=== PATIENT | female | born 1955 | race Caucasian/White ===

== ENCOUNTER 2021-02-16 14:19 | Emergency (ER) | payer OTHER ==
--- OUTSIDE RECORDS SUMMARY | 2021-02-16 14:22 | XMS REPORT | Continuity of Care Document ---
:1955 Author Organization [facility] t Address [address] [place] [address] Care Team Providers Name Role Phone Rita MCCALLUM Primary Care Physician Eva De La Garza MD Attending Clinician Eddy Dempsey DO Attending Clinician Carroll QUEZADA Attending Clinician Unavailable Joel RAINEY Attending Clinician Unavailable Vinny Osman MD Attending Clinician Lisa FALK Attending Clinician MD Eva DE LA GARZA Attending Clinician Unavailable Casey Dick NP Attending Clinician Delroy QUEZADA Attending Clinician Unavailable Danelle Meade MD Attending Clinician RAIZA Attending Clinician Unavailable María MIRANDA S Attending Clinician TAMIE Admitting Clinician Unavailable JAI BANKS Admitting Clinician Unavailable RAIZA Admitting Clinician Unavailable Payers Payer Name Policy Type Policy Effective Date Expiration Date Sour ce Number HUMANA [id number] 2019 [place] MEDICAREHUMAN 00:00:00 Scientologist MEDICARE PPO/PFFS/ERS [id number] 2019 -PresentPPO Problems Condition Condition Condition Status Onset Resolution Last Treating Co mments Source Name Details Category Date Date Treatment Clinician Date Primary Primary Disease Active Overview: [place] osteoarthr osteoarthr 09-03 Formattin Methodi itis of itis of 00:00: g of this st right knee right knee 00 note might be different from the original. Added automatic ally from request for surgery [id number] Arthritis Arthritis Problem Active 2018-08 [place] of right of Right 0-15 da knee Knee 00:00: [facility] caused by Caused by 00 al bacteria Bacteria Health Outreac h Program Pyogenic Pyogenic Disease Active 2018-08 [place] arthritis arthritis 0-12 Meth kait of right of right 00:00: st knee joint knee joint 00 Hyperlipid Hyperlipid Problem Active M [place] emia emia 5-13 da 00:00: [facility] 00 al [facility] Obesity Obesity Problem Active [place] [facility] Hypertensi Hypertensi Problem Active [facility] [place] ve ve da disorder Disorder [facility] Asthma Asthma Problem Active [place] [facility] Pain in Pain in Problem Active [place] right knee Right Knee da [facility] Allergies, Adverse Reactions, Alerts Allergy Allergy Status Severity Reaction(s) Onset Inactive Treating Comm ents Source Name Type Date Date Clinician Hydrocod Propensi Active Itching, GI 2018-08 Constipa t [place] one-Acet ty to Intolerance 0-12 ion Pt Met hodi aminophe adverse 00:00: states st n reaction 00 she can s to take it drug but she doesn't like the side effects in her stomach WILBER Allergy Active Mild Cough [place] INHIBITO to da RS substanc [facility] Family History Family Member Diagnosis Comments Start Date Stop Date Source Natural father No Known Problems Nazanin stojailene Scientologist Natural mother No Known Problems Nazanin justa Scientologist Social History Social Habit Start Date Stop Date Quantity Comments Source History SDOH [facility] Meth odist Alcohol Std Drinks History SDOH [place] Meth odist Alcohol Binge Tobacco use and 2020-12-30 2020-12-30 Never used Phill Casillas ethodist exposure 00:00:00 00:00:00 Alcohol intake 2020-12-30 2020-12-30 Current drinker [place] Scientologist 00:00:00 00:00:00 of alcohol (finding) History SDOH 2020-10-07 2020-10-07 1 Phill Meth odist Alcohol Frequency 00:00:00 00:00:00 Alcohol Comment 2020-09-25 2020-09-25 Very seldom Phill Scientologist 00:00:00 00:00:00 Sex [birth year] Phill singh 00:00:00 00:00:00 Smoking Status Start Date Stop Date Source Never smoker Phill Kayeis ivania Medications Ordered Filled Start Stop Current Ordering Indication Dosage Frequency Signature Comments Components Source Medication Medication Date Date Medication? Clinician (SIG) Name Name HYDROcodone 2020- No acute pain acute [place] -acetaminop 11-04 pain. 1-2 Me thodi hen (NORCO) 00:00: 23:[address] 7.5-325 mg 00 :00 mouth per tablet every 4-6 hours as needed for post op pain HYDROcodone 2020- No acute pain acute [place] -acetaminop 10-21 pain. Take Vinny ethodi hen (NORCO) 00:00: 23:[address] 10-325 mg 00 :00 6-8 hours per tablet as needed for post op pain. aspirin 2020- No Presence of 81mg Q.5D Take 1 [place] (ECOTRIN) 09-26 right tablet (81 Me thodi 81 MG 00:00: 23:59 artificial mg total) st enteric 00 :00 knee joint by mouth 2 coated (two) tablet times a day for 42 days. docusate 2020- No Presence of 100mg Q.5D Take 1 [place] sodium 09-26 right capsule Methodi (Colace) 00:00: 00:00 artificial ([address] 100 MG 00 :00 knee joint total) by capsule mouth 2 (two) times a day. gabapentin 2020- No Presence of 300mg QD Take 1 [place] (NEURONTIN) 09-26 right capsule Met hodi 300 mg 00:00: 23:59 artificial (300 mg s t capsule 00 :00 knee joint total) by mouth nightly for 30 days. cholecalcif Yes 2000U QD Take 2,000 [place] kel, 1-27 Units by Methodi vitamin D3, 14:54: mouth st (VITAMIN 37 daily. D3) 2,000 unit capsule capsule alpha Yes 1{capsu QD Take 1 [place] tocopherol 1-27 le} capsule by Met olgai (VITAMIN E) 14:54: mouth st 400 unit 37 daily. capsule capsule losartan Yes 100mg QD Take 100 [place] (COZAAR) 1-27 mg by Methodi 100 MG 14:54: mouth st tablet 37 daily. celecoxib Yes 200mg QD Take 200 Nazanin ston (CeleBREX) 1-27 mg by Methodi 200 MG 14:54: mouth st capsule 37 daily. hydroCHLORO Yes 12.5mg QD Take 12.5 [place] thiazide 1-27 mg by Methodi (HYDRODIURI 14:54: mouth st L) 12.5 MG 37 daily. tablet b complex Yes 1{capsu QD Take 1 Nazanin ston vitamins 1-27 le} capsule by Metho di capsule 14:54: mouth st 37 daily. coenzyme Yes 100mg QD Take 100 [place] Q10 (Co 1-27 mg by Methodi Q-10) 100 14:54: mouth st mg capsule 37 daily. glucosamine Yes 2{tbl} Take 2 [place] /condroitin 1-27 tablets by thkait /[id number] 14:54: mouth. st (COSAMIN 37 ASU ORAL) montelukast 2020- No 10mg QD Take 10 mg Phill (SINGULAIR) 09-20 by mouth Met hodi 10 mg 14:51: 00:[address] tablet 56 :00 meloxicam 2020- No 15mg QD Take 15 mg [place] (MOBIC) 15 09-20 by mouth Meth kait mg tablet 14:51: 00:[address] 54 :00 atorvastati 2020- No 20mg QD Take 20 mg Phill n (LIPITOR) 09-20 by mouth Met hodi 20 MG 14:51: 00:[address] tablet 43 :00 Default OP ins albuterol 2020- No 2{puff} Q6H Inhale 2 [place] (PROAIR 09-20 puffs Methodi HFA) 90 14:51: 00:[address] mcg/actuati 39 :00 (six) on inhaler hours as needed for wheezing. hydroCHLORO 2020- No 25mg QD Take 25 mg [place] thiazide 09-20 by mouth Method i (HYDRODIURI 14:50: 00:[address] L) 25 MG 52 :00 tablet nut.tx.comp 2020- No Pre-operati 1{bottl Q.[id number] Take 1 [place] . immune 09-20 ve e} [id number] Bottle by Methodi systm,reg 00:00: 23:59 examination 3D mouth 3 st (Impact 00 :00 (three) Advanced times a Recovery) day for 5 0.1 days. gram-1.12 Dispense kcal/mL at [facility] liquid HYDROcodone 2020- No acute pain acute [place] -acetaminop 09-20 pain. 1 Meth kait hen ([place]) 00:00: 00:[address] 10-325 mg 00 :00 mouth per tablet every 6-8 hours as needed for post op pain chlorhexidi 2020- No Pre-operati Give at [place] ne 1-05 03-08 ve PAT Methodi (Hibiclens) 00:00: 00:[address] 4 % 00 :00 external liquid metoprolol metoprolol No 1 BID metoprolol [place] tartrate 25 tartrate 25 tartrate da mg tablet mg tablet 25 mg Epis copra sampler Take 1 Take 1 tablet al tablet tablet Take 1 Health twice a day twice a day tablet Outreac by oral by oral twice a h route for route for day by Pro gram 30 days. 30 days. oral route for 30 days. montelukast montelukast No montelukas [place] 10 mg 10 mg t 10 mg da tablet Take tablet Take tablet [facility] 1 tablet(s) 1 tablet(s) Take 1 al every day every day tablet(s) Health by oral by oral every day Outr eac route in route in by oral h the morning the morning route in Program for 30 for 30 the days. days. morning for 30 days. Symbicort Symbicort No Symbicort [place] 160 mcg-4.5 160 mcg-4.5 160 d a mcg/actuati mcg/actuati mcg-4.5 [facility] on HFA on HFA mcg/actuat al aerosol aerosol ion HFA Health inhaler 2 inhaler 2 aerosol Ou treac PUFFS BY PUFFS BY inhaler 2 h INHALATION INHALATION PUFFS BY Program ROUTE 2 ROUTE 2 INHALATION TIMES PER TIMES PER ROUTE 2 DAY DAY TIMES PER DAY Ventolin Ventolin No Ventolin [place] HFA 90 HFA 90 HFA 90 da mcg/actuati mcg/actuati mcg/actuat [facility] on aerosol on aerosol ion al inhaler inhaler aerosol Health Inhale 2 Inhale 2 inhaler Outr eac puffs every puffs every Inhale 2 h 4 hours by 4 hours by puffs Pr ogram inhalation inhalation every 4 route as route as hours by needed for needed for inhalation 30 days. 30 days. route as needed for 30 days. Vitamin D3 Vitamin D3 No 1 Q1D Vitamin D3 [place] 50 mcg 50 mcg 50 mcg da (2,000 (2,000 (2,000 [facility] unit) unit) unit) al tablet Take tablet Take tablet Health 1 tablet 1 tablet Take 1 Outre ac every day every day tablet h by oral by oral every day Prog vanesa route. route. by oral route. vitamin E vitamin E No 1{capsu vitamin E [place] 400 unit 400 unit le} 400 unit da capsule 1 capsule 1 capsule 1 [facility] {capsule} {capsule} {capsule} al by oral by oral by oral Health route. route. route. Outreac h Program Aspir-81 Aspir-81 No Aspir-81 [place] One tab One tab One tab da daily daily daily [facility] atorvastati atorvastati No atorvastat [place] n 20 mg n 20 mg in 20 mg da tablet Take tablet Take tablet [facility] 1 tab by 1 tab by Take 1 tab a l mouth once mouth once by mouth Health a day a day once a day Outreac h Program cholecalcif cholecalcif No 2000U cholecalci [place] kel kel ferol da (vitamin (vitamin (vitamin Epi scop D3) 50 mcg D3) 50 mcg D3) 50 mcg al (2,000 (2,000 (2,000 Health unit) unit) unit) Outreac capsule capsule capsule h 2000 units 2000 units 2000 units Program by oral by oral by oral route. route. route. hydrochloro hydrochloro No hydrochlor [place] thiazide 25 thiazide 25 othiazide da mg tablet 1 mg tablet 1 25 mg [facility] po qd po qd tablet 1 al po qd Health Outreac h Program losartan 50 losartan 50 No 1 Q1D losartan [place] mg tablet mg tablet 50 mg da Take 1 Take 1 tablet [facility] tablet tablet Take 1 al every day every day tablet Hea lth by oral by oral every day Outr eac route. route. by oral h route. Program Macrobid Macrobid No 1capsul BID Macrobid [place] 100 mg 100 mg e(s) 100 mg da capsule capsule capsule [facility] p Take 1 Take 1 Take 1 al capsule capsule capsule Health twice a day twice a day twice a Outreac by oral by oral day by h route for 7 route for 7 oral route Program days. days. for 7 Complete Complete days. entire entire Complete course of course of entire antibiotics antibiotics course of antibiotic s meloxicam meloxicam No meloxicam [place] 15 mg 15 mg 15 mg da tablet 1 po tablet 1 po tablet 1 [facility] qd qd po qd al Health Outreac [facility] Program Immunizations Ordered Immunization Filled Immunization Date Status Commen ts Source Name Name pneumococcal pneumococcal 2019-01-09 Completed [place] polysaccharide PPV23 polysaccharide PPV23 12:20:23 [facility] influenza, influenza, 2018-03-30 Completed [place] injectable, injectable, 00:00:00 Muslim quadrivalent quadrivalent Health Out reach Program pneumococcal pneumococcal 2017-08-18 Completed [place] conjugate PCV 13 conjugate PCV 13 00:00:00 Ep [facility]al [facility]re[facility] Tdap Tdap 2014-08-30 Completed [place] 00:00:00 [facility] Vital Signs Vital Name Observation Time Observation Value Comments Source BP Diastolic 2019-09-07 00:00:00 74 mm[Hg] [place] [facility] Height 2019-09-07 00:00:00 65 [in_i] [place] [facility] BMI (Body Mass 2019-09-07 00:00:00 38.8 kg/m2 [place] link assembler Index) [facility] BP Systolic 2019-09-07 00:00:00 110 mm[Hg] [place] [facility] Body Weight 2019-09-07 00:00:00 233 [lb_av] [place] [facility] BP Diastolic 2019-08-09 00:00:00 80 mm[Hg] [place] [facility] Height 2019-08-09 00:00:00 65 [in_i] [place] [facility] BMI (Body Mass 2019-08-09 00:00:00 38.8 kg/m2 [place] link assembler Index) [facility] BP Systolic 2019-08-09 00:00:00 110 mm[Hg] [place] [facility] Body Weight 2019-08-09 00:00:00 233 [lb_av] [place] [facility] BP Diastolic 2019-07-12 00:00:00 88 mm[Hg] [place] [facility] Height 2019-07-12 00:00:00 65 [in_i] [place] [facility] BMI (Body Mass 2019-07-12 00:00:00 38.2 kg/m2 [place] link assembler Index) [facility] BP Systolic 2019-07-12 00:00:00 138 mm[Hg] [place] [facility] Body Weight 2019-07-12 00:00:00 229.6 [lb_av] [place] [facility] BP Diastolic 2019-06-21 00:00:00 90 mm[Hg] [place] [facility] Height 2019-06-21 00:00:00 65 [in_i] [place] [facility] BP Systolic 2019-06-21 00:00:00 108 mm[Hg] [place] [facility] Body height 2020-12-30 09:54:00 165.1 cm [facility] Body weight 2020-12-30 09:54:00 108.863 kg Phill Dawkins BMI 2020-12-30 09:54:00 39.94 kg/m2 Phill Dawkins Systolic blood 2020-09-25 13:50:00 126 mm[Hg] Sarmad n Scientologist pressure Diastolic blood 2020-09-25 13:50:00 76 mm[Hg] [place] on Scientologist pressure Heart rate 2020-09-25 13:50:00 82 /min Phill Dawkins Respiratory rate 2020-09-25 13:50:00 19 /min Keke Dawkins Oxygen saturation in 2020-09-25 13:50:00 95 /min Phill Dawkins Arterial blood by Pulse oximetry Body temperature 2020-09-25 12:34:00 36.72 Allegra Keke Dawkins Procedures Procedure Date / Time Performing Clinician Source Performed XR KNEE 3 VW RIGHT 2020-10-07 13:05:53 Joanna De La Garza XR KNEE 1 OR 2 VW RIGHT 2020-09-25 12:11:40 Joanna De La Garza SURGICAL PATHOLOGY 2020-09-25 12:09:00 Joanna De La Garza REQUEST ARTHROPLASTY, KNEE, TOTAL 2020-09-25 09:32:00 Joanna De La Garza VT AN PERIPHERAL BLOCK 2020-09-25 08:25:52 Jabari Osman on Scientologist PROCEDURE FOR PAIN VT AN PERIPHERAL BLOCK 2020-09-25 08:25:35 Jabari Osman on Scientologist PROCEDURE FOR PAIN ANESTHESIA SPINAL BLOCK 2020-09-25 08:25:03 Jabari Osman POC GLUCOSE 2020-09-25 07:22:00 Joanna De La Garza Met jose raul ABO AND RH CONFIRMATION 2020-09-25 07:20:00 Joanna De La Garza COVID-19 QUALITATIVE PCR 2020-09-20 15:21:00 Marsha Banks HC COMPLETE BLD COUNT 2020-09-20 15:21:00 Joanna De La Garza W/AUTO DIFF HEMOGLOBIN A1C 2020-09-20 15:21:00 Joanna De La Garza Met jose raul PROTHROMBIN TIME WITH INR 2020-09-20 15:21:00 Joanna De La Garza PARTIAL THROMBOPLASTIN 2020-09-20 15:21:00 Joanna De La Garza TIME (PTT) COMPREHENSIVE METABOLIC 2020-09-20 15:21:00 Joanna De La Garza PANEL TYPE AND SCREEN 2020-09-20 15:21:00 Marsha Banks Phill Met jose raul ESTIMATED GFR 2020-09-20 15:21:00 Joanna De La Garza Met jose raul MRI SIGNATURE KNEE RIGHT 2020-08-22 18:06:35 Joanna De La Garza XR KNEE 1 OR 2 VW RIGHT 2020-08-02 10:49:54 Raquel Meade XR KNEE AP STANDING 2020-08-02 10:47:12 Raquel Meade BILATERAL CHEST X-RAY 2019-09-07 00:00:00 [place] [facility] ELECTROCARDIOGRAM, 2019-09-07 00:00:00 [place] [facility] COMPLETE [facility] Outreach Program Ekg for Initial Prevent 2016-11-10 00:00:00 Silva alessia [facility] Exam [facility] Outreach Program Total Hysterectomy [place] Epi scopal Health Outreach Program Plan of Care Planned Activity Planned Date Details Comments Source Future Scheduled 2024-01-10 65+ PNEUMOCOCCAL Phill Dawkins Test 00:00:00 VACCINE (2 of 2) [code = 65+ PNEUMOCOCCAL VACCINE (2 of 2)] Future Scheduled 2021-03-30 INFLUENZA VACCINE Sarmad Dawkins Test 00:00:00 [code = INFLUENZA VACCINE] Diagnostic Test 2019-09-07 CBC w/ auto diff [place] Pending 00:00:00 [code = CBC w/ auto [facility] diff] Outreach Progra [facility] Diagnostic Test 2019-09-07 CMP, serum or plasma Silva alessia Pending 00:00:00 [code = CMP, serum or [facility] plasma] Outreach Progra m Diagnostic Test 2019-09-07 lipid panel, serum [place] link assembler Pending 00:00:00 [code = lipid panel, [facility] serum] Outreach Progra m Diagnostic Test 2019-09-07 TSH + free T4, serum Silva alessia Pending 00:00:00 [code = TSH + free [facility] T4, serum] Outreach Progra m Diagnostic Test 2019-09-07 HbA1c (hemoglobin [place] Pending 00:00:00 A1c), blood [code = [facility] HbA1c (hemoglobin Outreach P rogram A1c), blood] Diagnostic Test 2019-09-07 urinalysis, complete Silva alessia Pending 00:00:00 [code = urinalysis, [facility] complete] Outreach Progra [facility] Future Scheduled 2005 BREAST CANCER [facility] thodist Test 00:00:00 SCREENING [code = BREAST CANCER SCREENING] Future Scheduled 2005 COLONOSCOPY SCREENING [place] Scientologist Test 00:00:00 [code = COLONOSCOPY SCREENING] Future Scheduled 2005 SHINGLES VACCINES [place] Scientologist Test 00:00:00 (#1) [code = SHINGLES VACCINES (#1)] Future Scheduled 1973 Hepatitis C screening [place] Scientologist Test 00:00:00 (procedure) [code = 455151048] Future Scheduled 1967 COVID-19 VACCINE (1) Nazanin ston Scientologist Test 00:00:00 [code = COVID-19 VACCINE (1)] Encounters Start End Encounter Admission Attending Care Care Encounter Source Date/Time Date/Time Type Type Clinicians Facility Department ID 2020-12-30 2020-12-[address] [facility] [id number] [place] 00:00:00 00:00:00 JOANNA 636 Method i 2020-11-04 2020-11-04 Patient Ke [facility] [id number] 00:00:00 00:00:00 Outreach [facility] [id number] [facility] [id number] LARRY [id number] 2020-11-04 2020-11-[address] [facility] [id number] 8[address] [place] 00:00:00 00:00:00 JOANNA [address] 2020-10-07 2020-10-[address] [facility] [id number] 8[address] [place] 00:00:00 00:00:00 JOANNA [address] 2020-10-07 2020-10-[address] [facility] [id number] 340 [place] 00:00:00 00:00:00 JOANNA [address] 2020-09-25 2020-09-25 Outpatient TAMIE, [facility] [id number] 340 [place] 00:00:00 00:00:00 JOANNA [address] 2020-09-20 2020-09-20 Outpatient TAMIE, [facility] [id number] [place] 00:00:00 00:00:00 JOANNA [address] 2020-09-20 2020-09-20 Outpatient [facility] [id number] 340 [place] 00:00:00 00:00:[address] 2020-08-22 2020-08-22 Outpatient TAMIE, [facility] [id number] 9[address] [place] 00:00:00 00:00:00 JOANNA [address] 2020-08-08 2020-08-08 Outpatient TAMIE, [facility] [id number] [address] [place] 00:00:00 00:00:00 JOANNA [address] 2020-08-02 2020-08-02 Outpatient RAQUEL MEADE [facility] [id number] [place] 00:00:00 00:00:[address] 2020-08-02 2020-08-02 Outpatient RAQUEL MEADE [facility] [id number] [place] 00:00:00 00:00:[address] 2020-08-02 2020-08-02 Outpatient RAQUEL MEADE [facility] [id number] [place] 00:00:00 00:00:[address] 2019-09-07 2019-09-07 Maribel [place] - [id number] [place] 00:00:00 00:00:00 Chu Gamboa NEGOTIATIONS DIRECTOR: [address] Muslim [facility] [address], [address] [place] [id number] Nallely jha , Ph. 2019-08-09 2019-08-09 Maribel [place] - [id number] [place] 00:00:00 00:00:00 Chu Gamboa NEGOTIATIONS DIRECTOR: [address] [facility] [address], [address] [place] [address] Nallely jha , Ph. 2019-07-12 2019-07-12 Maribel [place] - [id number] 3 [place] 00:00:00 00:00:00 Chu Gamboa da NEGOTIATIONS DIRECTOR: [address] Muslim [facility] [address], [place] [address], [facility] [address] Progr am , Ph. 2019-06-21 2019-06-21 Maribel [place] - [id number] 3 [place] 00:00:00 00:00:00 Chu Gamboa da NEGOTIATIONS DIRECTOR: [address] [facility] [address], [place] [address], [facility] [address] Progr am , Ph. 2019-06-09 2019-06-17 [facility] [id number] [place] 00:00:00 00:00:00 HAKEEM [address] 2019-04-28 2019-04-28 Office HOMERO Daniel [id number] 09:10:05 10:42:14 Visit [facility] [id number] Surgical [id number] Specialti [id number] [place] Results Test Description Test Time Test Comments Results Result Comments Source Surgical pathology request 2020-10-02 16:08:48 Test Item Value Reference Range Interpretation Comme nts Case number (test code = [id number]) [id number] Surgical pathology report (test code = See link below for PDF Lab R eport 9715) Result status (test code = [id number]) This is Final Report for [id number] [facility] Or 2 Vw [id number] 12:33:35Hm Interface, Radiology Results 09/25/2020 12:36 PM CST EXAMINATION: XR KNEE 1 OR 2 VW RIGHTCLINICAL HISTORY: total knee arthoplastyCOMPARISON: None.IMPRESSION:1.Total right knee arthroplasty intact and in anatomic alignment.2.No fracture.3.Expected acute postsurgical changes including regional soft tissue swelling, joint gas and subcutaneous emphysema.[facility]-[id number] [place] MethodistPeripheral [id number] 08:25:52Jabari Osman MD 09/25/2020 8:26 AMPeripheral Block Patient Location: Block roomReason for Blo ck: at surgeon's request, post-op pain management Performed by: anesthesiologistAnesthesiologist: Jabari Osman, MDAuthorized by: Jabari Osman MD Preprocedure: patient identified, IV checked, site and side verified, risks and benefits discussed, procedure verified, surgical consent complete, p atient position confirmed, monitors and equipment checked, pre-op evaluation complete, site marked and coagulation status reviewed Peripheral Nerve Block: Patient Position: Supine Prep: ChloraPrep Monitoring: Blood pressure monitoring, continuous pulse oximetry and heart rateAnesthesia block type: Right Anterior Femoral Cutaneous.Laterality: RightInjection Technique: Single injectionProcedures: ultrasound guided Ultrasound documentation: Printed/placed in chartLocal Infiltration (See MAR for details): RopivacaineNeedle: Needle Type: Long-bevel and Pajunk Needle Gauge: 22 G Needle Length: 10 cmAssessment: Injection Assessment: Visualized needle/local anesthetic surrounding nerve, needle tip visualized at all times during injection of medication, visualized pertinent vascular structures and nerves, intermittent aspiration during local anesthetic administration and no symptoms of intraneural/intravenous injection Heart Rate Change: No Slow Fractionated Injection: YesBlock outcome: No apparent complications, patient comfortable and patient tolerated procedure wellNotes: Time out Done Immediately Before ProcedureWestern [place] MethodistPeripheral [id number] 08:25:35 Jabari Osman MD 09/25/2020 8:25 AMPeripheral Block Patient Location: Pre-opReason for Block:at surgeon's request, post-op pain management Performed by: anesthesiologistAnesthesiologist: Jabari Osman MDAuthorized by: Jabari Osman MD Preprocedure: patient identified, IV checked, siteand side verified, risks and benefits discussed, procedure verified, surgical consent complete, patient position confirmed, monitors and equipment checked, pre-op evaluation complete and site marked Peripheral Nerve Block: Patient Position: Supine Prep: DuraPrep Block Type: Femoral (Right Femoral Adductor Canal Single Shot)Laterality: RightInjection Technique: Single injectionProcedures: ultr asound guided Ultrasound documentation: Printed/placed in chartLocal Infiltration (See MAR for details): RopivacaineNeedle: Needle Type: Pajunk Needle Gauge: 19 G Needle Length: 10 cm Catheter at Skin Depth: 6 cmAssessment: Injection Assessment: Visualized needle/local anesthetic surrounding nerve, visualized pertinent vascular structures and nerves, needle tip visualized at all times during injection of medication, intermittent aspiration during local anesthetic administration and nosymptoms of intraneural/intravenous injection Heart Rate Change: No Slow Fractionated Injection:Yes Block outcome: No apparent complications, patient comfortable and patient tolerated procedure wellNotes: 20cc 0.5N and 4mg decadronTime Out done immediately [facility] [id number] 08:25:03Jabari Osman MD 09/25/2020 8:25 AMSpinal Block Patient Location: Pre-opReason for Block: primary anesthetic Performed by: anesthesiologistAnesthesiologist: Jabari Osman, MDAuthorized by:Jabari Osman MD Preprocedure: patient identified, IV checked, site and side verified, risks and benefits discussed, procedure verified, surgical consent complete, patient position confirmed, monitors and equipment checked and pre-op evaluation complete Spinal Block: Patient Position: Sitting Prep: DuraPrep Monitoring: Blood pressure monitoring, continuous pulse oximetry and heart rate Approach: Midline Interspace: L3-4Injection Technique: Single injectionNeedle: Needle Type: Sprotte tip Needle Gauge: 25 GAssessment: Block assessment: No apparent complicationsNotes: 2cc 0.5M IsobaricTime out performed immediately before procedureWestern Grove CqrobbytdWBIZ-UvE-1 (COVID-19) RNA [Presence] in Respiratory specimen by SARAH with probe [id number] 09:06:21 Test Item Value Reference Range Interpretation Comments SARS-CoV-2 (COVID-19) RNA Not detected Not-Detected [Presence] in Respiratory specimen by SARAH with probe detection (test code = 33811-6) MRI Signature Knee [id number] 18:11:14Hm Interface, Radiology Results 08/22/2020 6:14 PM CST EXAMINATION: MRI KNEE WO CONTRAST RIGHTCLINICAL HISTORY: M17.11 Unilateralprimary osteoarthritis right knee, Arthritis knee COMPARISON: August 02, 2020.TECHNIQUE: Sagittal3-D T1 weighted fat saturated high resolution images of the right knee were obtained. Axial T1 weighted images of the ankle and hip were also obtained. The study was performed using the [employer] signature protocol for preoperative planning.FINDINGS: 1. Severe medial compartment predominant tricompartmental right knee osteoarthritis with degenerative tearing of the medial meniscus, multifocal full-thickness chondrosis, and a small volume effusion. The extensor mechanism is grossly intact.2. Limited evaluation of the right hip demonstrates no acute fracture or other abnormality. Diverticulosis withoutevidence of diverticulitis.3. Limited evaluation of the right ankle demonstrates no acute abnormality. 4. Extensive heterogeneous marrow, nonspecific this may be seen in a variety of clinical settings including anemia, clinical correlation recommendedIMPRESSION: Successful limited MR for prosthesis planning. [id number] MethodistFree T4 and TSH panel - Serum or [id number] 00:00:00 Test Item Value Reference Range Interpretation Comments Thyrotropin [Units/volume] in 2.880 uIU/mL 0.450-4.500 Serum or Plasma by Detection limit <= 0.005 mIU/L (test code = 40474-7) Thyroxine (T4) free 1.51 NG/dL 0.82-1.77 [Mass/volume] in Serum or Plasma (test code = 3024-7) [facility] W Auto Differential panel - Blood 2019-09-08 00:00:00 Test Item Value Reference Range Interpretation Comments Leukocytes [#/volume] in Blood 10.1 x10e3/uL 3.4-10.8 by Automated count (test code = 6690-2) Erythrocytes [#/volume] in 4.29 x10e6/uL 3.77-5.28 Blood by Automated count (test code = 789-8) Hemoglobin [Mass/volume] in 12.3 g/dL 11.1-15.9 Blood (test code = 718-7) Hematocrit [Volume Fraction] of 36.9 % 34.0-46.6 Blood by Automated count (test code = 4544-3) Erythrocyte mean corpuscular 86 fL 79-97 volume [Entitic volume] by Automated count (test code = 787-2) Erythrocyte mean corpuscular 28.7 pg 26.6-33.0 hemoglobin [Entitic mass] by Automated count (test code = 785-6) Erythrocyte mean corpuscular 33.3 g/dL 31.5-35.7 hemoglobin concentration [Mass/volume] by Automated count (test code = 786-4) Erythrocyte distribution width 14.8 % 11.7-15.4 [Ratio] by Automated count (test code = 788-0) Platelets [#/volume] in Blood 212 x10e3/uL 150-450 by Automated count (test code = 777-3) Neutrophils/100 leukocytes in 58 % not estab. Blood by Automated count (test code = 770-8) Lymphocytes/100 leukocytes in 28 % not estab. Blood by Automated count (test code = 736-9) Monocytes/100 leukocytes in 8 % not estab. Blood by Automated count (test code = 5905-5) Eosinophils/100 leukocytes in 6 % not estab. Blood by Automated count (test code = 713-8) Basophils/100 leukocytes in 0 % not estab. Blood by Automated count (test code = 706-2) immature cells (test code = senior professional services consultant immature cells) Neutrophils [#/volume] in Blood 5.8 x10e3/uL 1.4-7.0 by Automated count (test code = 751-8) Lymphocytes [#/volume] in Blood 2.9 x10e3/uL 0.7-3.1 by Automated count (test code = 731-0) Monocytes [#/volume] in Blood 0.8 x10e3/uL 0.1-0.9 by Automated count (test code = 742-7) Eosinophils [#/volume] in Blood 0.6 x10e3/uL 0.0-0.4 H by Automated count (test code = 711-2) Basophils [#/volume] in Blood 0.0 x10e3/uL 0.0-0.2 by Automated count (test code = 704-7) immature granulocytes (test 0 % not estab. code = immature granulocytes) Granulocytes Immature 0.0 x10e3/uL 0.0-0.1 [#/volume] in Blood by Automated count (test code = 44380-3) Nucleated erythrocytes/100 senior professional services consultant leukocytes [Ratio] in Blood by Automated count (test code = 58125-5) Morphology [interpretation] in senior professional services consultant Blood Narrative (test code = 61086-0) [facility] Outreach ProgramComprehensive metabolic 2000 panel - Serum or [id number] 00:00:00 Test Item Value Reference Range Interpretation Comments Glucose [Mass/volume] in Serum 104 mg/dL 65-99 H or Plasma (test code = 2345-7) Urea nitrogen [Mass/volume] in 31 mg/dL 8-27 H Serum or Plasma (test code = 3094-0) Creatinine [Mass/volume] in 0.85 mg/dL 0.57-1.00 Serum or Plasma (test code = 2160-0) eGFR if nonafricn AM (test 73 mL/min/1.73 >59 code = eGFR if nonafricn AM) eGFR if africn AM (test code = 84 mL/min/1.73 >59 eGFR if africn AM) Urea nitrogen/Creatinine [Mass 36 12-28 H Ratio] in Serum or Plasma (test code = 3097-3) Sodium [Moles/volume] in Serum 142 mmol/L 134-144 or Plasma (test code = 2951-2) Potassium [Moles/volume] in 4.4 mmol/L 3.5-5.2 Serum or Plasma (test code = 2823-3) Chloride [Moles/volume] in 102 mmol/L 96-106 Serum or Plasma (test code = 5-0) Carbon dioxide, total 21 mmol/L 20-29 [Moles/volume] in Serum or Plasma (test code = 2027-9) Calcium [Mass/volume] in Serum 9.5 mg/dL 8.7-10.3 or Plasma (test code = 55588-4) Protein [Mass/volume] in Serum 7.5 g/dL 6.0-8.5 or Plasma (test code = 2885-2) Albumin [Mass/volume] in Serum 4.4 g/dL 3.6-4.8 or Plasma (test code = 1751-7) Globulin [Mass/volume] in 3.1 g/dL 1.5-4.5 Serum by calculation (test code = 20688-3) Albumin/Globulin [Mass Ratio] 1.4 1.2-2.2 in Serum or Plasma (test code = 1759-0) Bilirubin.total [Mass/volume] 0.3 mg/dL 0.0-1.2 in Serum or Plasma (test code = 1975-2) Alkaline phosphatase 93 IU/L 39-117 [Enzymatic activity/volume] in Serum or Plasma (test code = 6768-6) Aspartate aminotransferase 23 IU/L 0-40 [Enzymatic activity/volume] in Serum or Plasma (test code = 1920-8) Alanine aminotransferase 22 IU/L 0-32 [Enzymatic activity/volume] in Serum or Plasma (test code = 1742-6) [facility]rine 2019-09-08 00:00:00 Test Item Value Reference Range Interpretation Comments Specific gravity of Urine (test 1.021 1.005-1.030 code = 2965-2) pH of Urine by Test strip (test 6.5 5.0-7.5 code = 5803-2) Color of Urine (test code = 5778-6) yellow yellow Appearance of Urine (test code = clear clear 5767-9) Leukocyte esterase [Presence] in 1+ negative A Urine by Test strip (test code = 5799-2) Protein [Presence] in Urine by Test negative negative/trace strip (test code = 14081-4) Glucose [Presence] in Urine (test negative negative code = 2349-9) Ketones [Presence] in Urine by Test negative negative strip (test code = 2514-8) Hemoglobin [Presence] in Urine by trace negative A Test strip (test code = 5794-3) Bilirubin.total [Presence] in Urine negative negative by Test strip (test code = 5770-3) Urobilinogen [Mass/volume] in Urine 0.2 mg/dL 0.2-1.0 by Test strip (test code = 02035-8) Nitrite [Presence] in Urine by Test negative negative strip (test code = 5802-4) Microscopic observation senior professional services consultant [Identifier] in Urine sediment by Light microscopy (test code = 14957-1) Leukocytes [#/area] in Urine 0-5 0-5 sediment by Microscopy high power field (test code = 5821-4) Erythrocytes [#/area] in Urine 0-2 0-2 sediment by Microscopy high power field (test code = 55002-7) Epithelial cells [#/area] in Urine 0-10 0-10 sediment by Microscopy high power field (test code = 5787-7) Epithelial cells.renal [#/area] in senior professional services consultant Urine sediment by Microscopy high power field (test code = 69318-7) Casts [Presence] in Urine sediment senior professional services consultant by Light microscopy (test code = 31564-0) Casts [Type] in Urine sediment by senior professional services consultant Light microscopy (test code = 67208-6) Unidentified crystals [Presence] in senior professional services consultant Urine sediment by Light microscopy (test code = 5783-6) Crystals [type] in Urine sediment senior professional services consultant by Light microscopy (test code = 5782-8) Mucus [Presence] in Urine sediment senior professional services consultant by Light microscopy (test code = 8247-9) Bacteria [#/area] in Urine sediment none seen none seen/few by Microscopy high power field (test code = 5769-5) Yeast [#/area] in Urine sediment by senior professional services consultant Microscopy high power field (test code = 5822-2) Trichomonas vaginalis [Presence] in senior professional services consultant Urine sediment by Light microscopy (test code = 5813-1) Urine sediment comments by Light senior professional services consultant microscopy Narrative (test code = 47740-4) [facility] Outreach ProgramLipid 1996 panel - Serum or Plasma 2019-09-08 00:00:00 Test Item Value Reference Range Interpretation Comments Cholesterol [Mass/volume] in Serum 181 mg/dL 100-199 or Plasma (test code = 2093-3) Triglyceride [Mass/volume] in Serum 263 mg/dL 0-149 H or Plasma (test code = 2571-8) Cholesterol in HDL [Mass/volume] in 60 mg/dL >39 Serum or Plasma (test code = 2085-9) Cholesterol in VLDL [Mass/volume] 53 mg/dL 5-40 H in Serum or Plasma by calculation (test code = 95901-9) Cholesterol in LDL [Mass/volume] in 68 mg/dL 0-99 Serum or Plasma by calculation (test code = 75383-3) comment: (test code = comment:) senior professional services consultant [facility] Outreach ProgramHemoglobin A1c/Hemoglobin.total in [id number] 00:00:00 Test Item Value Reference Range Interpretation Comments Hemoglobin A1c/Hemoglobin.total in 5.4 % 4.8-5.6 Blood (test code = 4548-4) Glucose mean value [Mass/volume] in 108 mg/dL Blood Estimated from glycated hemoglobin (test code = 78996-5) [facility], [id number] 00:00:00 Test Item Value Reference Range Interpretation Comments interpretation (test code = note interpretation) pdf image (test code = pdf image) . [facility] [id number] 17:32:00 Test Item Value Reference Range Interpretation Comments Rate & Rhythm (test code = Rate & sinus Rhythm) VT Interval (test code = VT Interval) 169 QRS Duration (test code = QRS Duration) 85 QT Interval (test code = QT Interval) 407 [facility]
[2021-02-16] MEDS ORDERED: LEVALBUTEROL 1.25 MG/3 ML NEB ONE (14:56)
[2021-02-16] MEDS ORDERED: ALBUTEROL 2.5 MG/3 ML NEB SOL ONE (14:56)
[2021-02-16] MEDS ORDERED: IPRATROPIUM BROM 0.5MG/2.5ML ONE (14:57)
--- NOTE | 2021-02-16 15:13 | RAD REPORT ---
EXAM DESCRIPTION: RAD - Chest Single View - 02/16/2021 2:49 pm CLINICAL HISTORY: chest pain, shortness of breath COMPARISON: None TECHNIQUE: AP portable chest image was obtained 02/16/2021 2:49 pm . FINDINGS: Lung volumes are very low. Interstitial markings are prominent. There is no peripheral mas s or consolidation. Atelectasis is seen along the minor fissure. Heart and vasculature are normal. No measurable pleural effusion and no pneumothorax. No acute bony abnormality seen. No acute aortic fin dings suspected. IMPRESSION: No focal mass or consolidation. Low lung volumes accentuate vasculature and lung markings. This potentially masks mild interstitial e [place] or infiltrate.
[2021-02-16 15:22] LABS: Absolute Lymphocytes (CBC) 2.3 K/uL (0.7-4.9); Basophils % 0.8 % (0-1.3); Hematocrit 39.9 % (36.0-45.0); Lymphocytes % 22.9 % (15.3-44.8)
[2021-02-16] MEDS ORDERED: MAGNESIUM SULFATE 1 gm IVPB 1 GM/100 ML BAG IV ONE (15:33)
[2021-02-16] MEDS ORDERED: METHYLPREDNISOLONE 125 MG INJ ONE (15:33)
[2021-02-16 15:35] LABS: Protime INR 0.95
[2021-02-16 15:48] LABS: ALT/SGPT 25 U/L (12-78); AST/SGOT 16 U/L (15-37); Albumin 3.7 g/dL (3.4-5.0); Alkaline Phosphatase 85 U/L (45-117); BUN Blood Urea Nitrogen 17 mg/dL (7-18); Bicarbonate 24 mmol/L (21-32); Bilirubin Direct < 0.1 mg/dL (0-0.2); Bilirubin Total 0.3 mg/dL (0.2-1.0); Glucose Level 127 mg/dL (74-106); Magnesium 2.3 mg/dL (1.8-2.4); NT PRO-BNP 164 pg/mL (<125); Potassium 3.6 mmol/L (3.5-5.1); Sodium Level 142 mmol/L (136-145); Troponin (Emerg Dept Use Only) < 0.02 ng/mL (0.0-0.045)
--- NOTE | 2021-02-16 17:39 | ER ---
Nurse's Notes [facility] Name: Shivani Huerta Age: 66 yrs Sex: Female : 1955 Arrival Date: 02/16/2021 Time: 14:24 Bed 20 Private MD: Diagnosis: Unspecified asthma with (acute) exacerbation Presentation: 02/16 14:33 Chief complaint: Patient states: "I am having an asthma attach. shortness of breath jd3 since 0500 today.". Coronavirus screen: At this time, the client does not indicate any symptoms associated with coronavirus-19. Ebola Screen: Patient negative for fever greater than or equal to 101.5 degrees Fahrenheit, and additional compatible Ebola Virus Disease symptoms. Initial Sepsis Screen: Does the patient meet any 2 criteria? No. Patient's initial sepsis screen is negative. Does the patient have a suspected source of infection? No. Patient's initial sepsis screen is negative. Risk Assessment: Do you want to hurt yourself or someone else? Patient reports no desire to harm self or others. Onset of symptoms was February 16, 2021. 14:33 Method Of Arrival: Ambulatory jd3 14:33 Acuity: ELDA 3 jd3 Historical: - Allergies: 17:57 No Known Allergies; zb - Home Meds: 17:57 Albuterol Inhl [Active]; zb - PMHx: 17:57 Asthma; zb - Immunization history:: Adult Immunizations up to date. - Social history:: Smoking status: Patient denies any tobacco usage or history of. Screenin:25 Abuse screen: Denies threats or abuse. Denies injuries from another. Nutritional zb screening: No deficits noted. Tuberculosis screening: No symptoms or risk factors identified. Fall Risk None identified. Assessment: 14:40 General: Appears uncomfortable, Behavior is agitated, anxious. Pain:. Neuro: Level of zb Consciousness is awake, alert, obeys commands, Oriented to person, place, time, situation, Moves all extremities. Full function. Cardiovascular: Reports shortness of breath, Capillary refill < 3 seconds Patient's skin is warm and dry. Pulses are all present. Rhythm is regular. Respiratory: Reports shortness of breath at rest Airway is patent Respiratory effort is labored, shallow, Respiratory pattern is tachypnea Breath sounds with wheezes bilaterally. Onset: The symptoms/episode began/occurred today, the patient has moderate shortness of breath. GI: Abdomen is obese. Derm: Skin is intact, is healthy with good turgor, Skin is pink, warm \\T\\ dry. Musculoskeletal: Circulation, motion, and sensation intact. Range of motion: intact in all extremities. 15:26 Reassessment: Patient appears in no apparent distress at this time. Patient and/or zb family updated on plan of care and expected duration. Pain level reassessed. Patient is alert, oriented x 3, equal unlabored respirations, skin warm/dry/pink. neb tx ongoing. patient sx appear to be better. patient states she feels better. 16:35 Reassessment: Patient appears in no apparent distress at this time. Patient and/or zb family updated on plan of care and expected duration. Pain level reassessed. Patient is alert, oriented x 3, equal unlabored respirations, skin warm/dry/pink. Vital Signs: 14:34 BP 157 / 77; Pulse 83; Resp 23 S; Temp 98.8(O); Pulse Ox 93% on R/A; Weight 107.95 kg jd3 (R); Height 5 ft. 5 in. (165.10 cm) (R); Pain 3/10; 15:30 BP 148 / 61; Pulse 97; Resp 20; Pulse Ox 100% on NC; zb 16:34 BP 143 / 62; Pulse 92; Resp 20; Pulse Ox 95% on R/A; zb 14:34 Body Mass Index 39.60 (107.95 kg, 165.10 cm) jd3 ED Course: 14:24 Patient arrived in ED. mr 14:25 Andrew Gomez PA is PHCP. jmm 14:25 Shane Jackson MD is Attending Physician. jmm 14:34 Triage completed. jd3 14:35 Arm band placed on. jd3 14:39 Samara Navarro, BRIGID is Primary Nurse. zb 14:49 XRAY Chest (1 view) In Process Unspecified. EDMS 14:54 Initial lab(s) drawn, by me, sent to lab. Inserted saline lock: 22 gauge in right hand, dh3 using aseptic technique. Blood collected. 15:25 Patient has correct armband on for positive identification. Placed in gown. Bed in low zb position. Call light in reach. hospital monitor on. Pulse ox on. NIBP on. Door closed. Noise minimized. 17:56 No provider procedures requiring assistance completed. IV discontinued, intact, zb bleeding controlled, No redness/swelling at site. Pressure dressing applied. Administered Medications: 14:39 Drug: Xopenex (levalbuterol) (3) 1.25 mg Route: Inhalation; zb 16:36 Follow up: Response: No adverse reaction; Marked relief of symptoms zb 15:21 Drug: SOLU-Medrol (methylPrednisoLONE) 125 mg Route: IVP; Site: right hand; zb 16:36 Follow up: Response: No adverse reaction; Marked relief of symptoms zb 15:23 Drug: Magnesium Sulfate 1 grams Route: IVPB; Infused Over: 1 hrs; Site: right hand; zb 16:35 Follow up: Response: No adverse reaction; IV Status: Completed infusion; IV Intake: zb 100ml Intake: 16:35 IV: 100ml; Total: 100ml. zb Outcome: 17:39 Discharge ordered by . jenny 17:56 Discharged to home ambulatory, with family. zb 17:56 Condition: stable 17:56 Discharge instructions given to patient, family, Instructed on discharge instructions, follow up and referral plans. medication usage, Demonstrated understanding of instructions, follow-up care, medications, Prescriptions given X 2. 17:57 Patient left the ED. zb Signatures: Dispatcher [employer] EDMS Andrew Gomez PA PA jmm RafaelMaribel mr Hunt, [facility] Rachid Conteh RN RN jd3 Brown, Zipporah, RN RN zb Corrections: (The following items were deleted from the chart) 16:39 16:34 BP 143 / 62; Pulse 92bpm; Resp 22bpm; Pulse Ox 100% RA; zb zb 16:39 16:34 BP 143 / 62; Pulse 92bpm; Resp 22bpm; Pulse Ox 95% RA; zb zb
--- NOTE | 2021-02-16 17:39 | EDPHYS ---
Physician Documentation [facility] Name: Shivani Huerta Age: 66 yrs Sex: Female : 1955 Arrival Date: 02/16/2021 Time: 14:24 Bed 20 Private MD: ED Physician Shane Jackson HPI: 02/16 14:41 This 66 yrs old Female presents to ER via Ambulatory with complaints of jmm Asthma Exacerbation. 14:41 The patient presents to the emergency department with wheezing, Current therapy: jmm albuterol inhaler. Onset: The symptoms/episode began/occurred gradually, 1 week(s) ago. Modifying factors: The symptoms are alleviated by inhaler. Associated signs and symptoms: Pertinent positives: chest pain, Pertinent negatives: fever. This is a 66 year old female with a history of asthma that presents to the ED with complaints of shortness of breath beginning approx 1 week ago after mowing her lawn. Symptoms were alleviated with albuterol until 5 am this morning. Symptoms have been constant since. Patient also complains of chest pressure. . Historical: - Allergies: 17:57 No Known Allergies; zb - Home Meds: 17:57 Albuterol Inhl [Active]; zb - PMHx: 17:57 Asthma; zb - Immunization history:: Adult Immunizations up to date. - Social history:: Smoking status: Patient denies any tobacco usage or history of. ROS: 14:41 Constitutional: Negative for fever, chills, and weight loss. jmm 14:41 Cardiovascular: Positive for chest pain, with cough. 14:41 Respiratory: Positive for cough, wheezing. 14:41 All other systems are negative. Exam: 14:41 Constitutional: This is a well developed, well nourished patient who is awake, alert, jmm and in no acute distress. Head/Face: atraumatic. Eyes: EOMI, no conjunctival erythema appreciated ENT: Moist Mucus Membranes Neck: Trachea midline, Supple Chest/axilla: Normal chest wall appearance and motion. Cardiovascular: Regular rate and rhythm. No edema appreciated 14:41 Abdomen/GI: Non distended, soft Back: Normal ROM Skin: General appearance color normal MS/ Extremity: Moves all extremities, no obvious deformities appreciated, no edema noted to the lower extremities Neuro: Awake and alert, normal gait Psych: Behavior is normal, Mood is normal, Patient is cooperative and pleasant 14:41 Respiratory: mild respiratory distress is noted, Respirations: labored breathing, that is mild, Breath sounds: wheezing: is heard diffusely. Vital Signs: 14:34 BP 157 / 77; Pulse 83; Resp 23 S; Temp 98.8(O); Pulse Ox 93% on R/A; Weight 107.95 kg jd3 (R); Height 5 ft. 5 in. (165.10 cm) (R); Pain 3/10; 15:30 BP 148 / 61; Pulse 97; Resp 20; Pulse Ox 100% on NC; zb 16:34 BP 143 / 62; Pulse 92; Resp 20; Pulse Ox 95% on R/A; zb 14:34 Body Mass Index 39.60 (107.95 kg, 165.10 cm) jd3 MDM: 14:37 Patient medically screened. jenny 17:33 Data reviewed: vital signs, nurses notes. Counseling: I had a detailed discussion with jenny the patient and/or guardian regarding: the historical points, exam findings, and any diagnostic results supporting the discharge/admit diagnosis, lab results, radiology results, the need for outpatient follow up, to return to the emergency department if symptoms worsen or persist or if there are any questions or concerns that arise at home. ED course: Decreased wheezing on reauscultation. Patient states feeling much better. Patient advised to follow up with pcp and otherwise given strict return precautions. Patient understood and agrees with the plan of care . 02/16 14:38 Order name: Basic Metabolic Panel; Complete Time: 15:53 [facility] 02/16 14:38 Order name: CBC with Diff; Complete Time: 15:34 [facility] 02/16 14:38 Order name: LFT's; Complete Time: 15:53 [facility] 02/16 14:38 Order name: Magnesium; Complete Time: 15:53 [facility] 02/16 14:38 Order name: NT PRO-BNP; Complete Time: 15:53 [facility] 02/16 14:38 Order name: PT-INR; Complete Time: 15:53 [facility] 02/16 14:38 Order name: Troponin (emerg Dept Use Only); Complete Time: 15:53 [facility] 02/16 14:38 Order name: XRAY Chest (1 view); Complete Time: 15:15 [facility] 02/16 14:38 Order name: EKG; Complete Time: 14:39 [facility] 02/16 14:38 Order name: Cardiac monitoring; Complete Time: 14:57 [facility] 02/16 14:38 Order name: EKG - Nurse/Tech; Complete Time: 14:57 [facility] 02/16 14:38 Order name: IV Saline Lock; Complete Time: 14:57 [facility] 02/16 14:38 Order name: Labs collected and sent; Complete Time: 14:57 [facility] 02/16 14:38 Order name: O2 Per Protocol; Complete Time: 14:57 [facility] 02/16 14:38 Order name: O2 Sat Monitoring; Complete Time: 14:57 jm Administered Medications: 14:39 Drug: Xopenex (levalbuterol) (3) 1.25 mg Route: Inhalation; zb 16:36 Follow up: Response: No adverse reaction; Marked relief of symptoms zb 15:21 Drug: SOLU-Medrol (methylPrednisoLONE) 125 mg Route: IVP; Site: right hand; zb 16:36 Follow up: Response: No adverse reaction; Marked relief of symptoms zb 15:23 Drug: Magnesium Sulfate 1 grams Route: IVPB; Infused Over: 1 hrs; Site: right hand; zb 16:35 Follow up: Response: No adverse reaction; IV Status: Completed infusion; IV Intake: zb 100ml Disposition: 02/16/21 17:39 Discharged to Home. Impression: Unspecified asthma with (acute) exacerbation. - Condition is Stable. - Discharge Instructions: Asthma, Adult. - Prescriptions for Prednisone 20 mg Oral Tablet - take 3 tablet by ORAL route once daily for 5 days; 15 tablet. Albuterol Sulfate 90 mcg/actuation - inhale 1-2 puff by INHALATION route every 4-6 hours; 1 Inhaler. - Medication Reconciliation Form, Thank You Letter, Antibiotic Education, Prescription Opioid Use form. - Follow up: Private Physician; When: 2 - 3 days; Reason: Recheck today's complaints, Continuance of care, Re-evaluation by your physician. Signatures: Dispatcher [employer] EDAndrew Eldridge PA PA jmm Davies, Jonathon, RN RN jd3 Brown, Zipporah, RN RN zb Corrections: (The following items were deleted from the chart) 17:57 17:39 02/16/2021 17:39 Discharged to Home. Impression: Unspecified asthma with (acute) zb exacerbation. Condition is Stable. Forms are Medication Reconciliation Form, Thank You Letter, Antibiotic Education, Prescription Opioid Use. Follow up: Private Physician; When: 2 - 3 days; Reason: Recheck today's complaints, Continuance of care, Re-evaluation by your physician. jenny
[2021-02-16 18:05] VITALS: TEMP 98.8
[2021-02-16 18:08] VITALS: BP 143/62; O2SAT 95
--- NOTE | 2021-02-17 08:24 | EKG ---
Test Date: 2021-02-16 Test Time: 14:49:28 Foot And Ankle Surgeon: JANET MEASUREMENT RESULTS: Intervals: Rate: 74 NC: 156 QRSD: 82 QT: 398 QTc: 441 [place]: P: 43 NC: 156 QRS: -2 T: 42 INTERPRETIVE STATEMENTS: Normal sinus rhythm Normal ECG No previous ECG available for comparison Electronically Signed On 02-17-21 08:23:02 CDT by Newton Ross
== END 2021-02-16 17:57 | disposition home or self-care (01) ==
LOC: ER 14:19
DX: J45.901 Unspecified asthma with (acute) exacerbation (principal)
CPT/HCPCS: 93005; 85025; 80048; 36415; 83735; 85610; 80076; 84484; 83880; 71045; J3475; J2930